=== PATIENT | female | born 1985 | race Caucasian/White ===

== ENCOUNTER 2016-11-13 13:51 | Emergency (ER) | payer SELFPAY ==
[~2016-11-13 13:51] MED LIST: ADVAIR 25028 BLISTE1 PO; ALBUTEROL SULF8.5 G1 IH; BENZONATATE200 M1 PO; FLEXERIL10 MG PO; GUAIFENESIN-COD10 ML PO; IBUPROFEN200 M1 PO; LEVAQUIN750 M1 PO; LEXAPRO20 MG PO; LORTAB 10/500 T1 TAB PO; MEDROL4 MG/DOSE- PO; MUCINEX D1 TAB.SR .; MULTIVITAMINS1 EAC6 PO; NORCO 5/325 TAB1 TAB PO; NORFLEX100 MG PO; PREDNISONE20 M1 PO; PROAIR HFA8.5 GM IH; PROAIR HFA8.5 GM INH; PROMETH-CODEIN 65 ML PO; PROMETHAZINE-C118 ML PO; RELAFEN750 MG PO; TESSALON PERLE100 M1 PO; TRAMADOL HCL50 M2 PO; TRAZODONE HCL50 MG PO; TYLENOL W/CODEI1 TAB PO; ZITHROMAX250 M1 PO; ZITHROMAX250MG Z-PAK PO; no home meds
[2016-11-13] MEDS ORDERED: MOTRIN IB200 M1 PO (15:31)
[2016-11-13] MEDS ORDERED: NORCO 5-325 TA1 EACH PO (15:56)
[2017-04-10] MEDS ORDERED: TESSALON PERLE100 M1 PO (02:08)
[2017-04-10] MEDS ORDERED: PREDNISONE20 M1 PO (02:08)
== END 2016-11-13 16:29 ==
LOC: EDMED 13:51
PROC: 2W3DX1Z Immobilization of Left Lower Arm using Splint (ICD-10-PCS; principal; 2016-11-13)
DX: S52.512A Displaced fracture of left radial styloid process, initial encounter for closed fracture (principal); Z87.891 Personal history of nicotine dependence; W01.0XXA Fall on same level from slipping, tripping and stumbling without subsequent striking against object, initial encounter; Y92.019 Unspecified place in single-family (private) house as the place of occurrence of the external cause

== ENCOUNTER 2016-12-28 18:32 | Emergency (ER) | payer SELFPAY ==
[~2016-12-28 18:32] MED LIST changes: +MOTRIN IB200 M1 PO; +NORCO 5-325 TA1 EACH PO
[2016-12-28] MEDS ORDERED: PREDNISONE20 M1 PO (20:12)
[2016-12-28] MEDS ORDERED: CODEINE-GUAIFE120 M1 PO (20:12)
[2017-04-10] MEDS ORDERED: PREDNISONE20 M1 PO (02:08)
[2017-04-10] MEDS ORDERED: TESSALON PERLE100 M1 PO (02:08)
== END 2016-12-28 20:20 ==
LOC: EDMED 18:32
DX: J40 Bronchitis, not specified as acute or chronic (principal); J45.909 Unspecified asthma, uncomplicated; Z90.89 Acquired absence of other organs; F17.200 Nicotine dependence, unspecified, uncomplicated